=== PATIENT | male | born 1960 | race Caucasian/White ===

== ENCOUNTER 2021-08-30 12:06 | Outpatient (CLI) | payer BC | END 2021-08-30 12:07 | disposition home or self-care (01) | LOC: CSHCP 12:06 | PROVIDERS: ATTEND Internal Medicine | DX: R06.00 Dyspnea, unspecified (principal); R94.2 Abnormal results of pulmonary function studies | CPT/HCPCS: 94060; 94726; 94729; 94760 ==

== ENCOUNTER 2024-03-20 08:55 | Outpatient (CLI) | payer MEDICARE | END 2024-03-20 08:56 | disposition home or self-care (01) | LOC: CSHCT 08:55 | PROVIDERS: ATTEND Internal Medicine | DX: Z12.2 Encounter for screening for malignant neoplasm of respiratory organs (principal); Z87.891 Personal history of nicotine dependence; J44.9 Chronic obstructive pulmonary disease, unspecified; J94.8 Other specified pleural conditions | CPT/HCPCS: 71271 ==